=== PATIENT | male | born 1940 | race Caucasian/White ===

== ENCOUNTER 2016-07-07 05:23 | Inpatient (IN) | payer MEDICARE, BC ==
[2016-07-07] VITALS (17 sets, daily range): BP systolic 137–172; BP diastolic 67–95; PULSE 54–82; RESP 10–18; Ht 182.9 cm; Wt 93.0 kg
[~2016-07-07] VITALS: Ht 182.9 cm; Wt 93.0 kg
[2016-07-07] MEDS ORDERED: ATEN50TA PO (05:45)
[2016-07-07] MEDS ORDERED: DOXA4TAB3 PO (05:45)
[2016-07-07] MEDS ORDERED: ATOR20TA38 PO (05:45)
[2016-07-07] MEDS ORDERED: LISI-313 PO (05:45)
[2016-07-07] MEDS ORDERED: ASPI-664 PO (05:45)
[2016-07-07] MEDS ORDERED: OMEP20CA16 PO (05:45)
[2016-07-07] MEDS ORDERED: LACTATED RINGER'S 1,000 ML IV* SCH (06:30)
[2016-07-07] MEDS ORDERED: CEFAZOLIN 2 GM/50 ML (PMX) 50 ML IVPB SCH (06:30)
[2016-07-07] MEDS ORDERED: CEFAZOLIN 1 GM INJ ONE ×2 (06:53→07:06)
[2016-07-07] MEDS ORDERED: SURGIFOAM POWDER 1 GM KIT ONE (06:53)
[2016-07-07] MEDS ORDERED: CA CHLORIDE 10% 10 ML SYRINGE ONE (06:53)
[2016-07-07] MEDS ORDERED: HEPARIN 1000 UNITS/ML 10 ML INJ ONE (06:53)
[2016-07-07] MEDS ORDERED: BUPIVACAINE 0.25%/EPI (SDV) 30 ML INJ ONE (06:53)
[2016-07-07] MEDS ORDERED: THROMBIN 5000 UNIT VIAL ONE (06:54)
--- NOTE | 2016-07-07 06:58 | HPN ---
Date/Time of Note Date/Time of Note DATE: 07/07/16 TIME: 06:57 Interval H&P Admission Note Pt. seen H&P reviewed: No system changes PRIYANKA PALACIOS MD Jul 07, 2016 06:57
[2016-07-07] MEDS ORDERED: CYCLOBENZAPRINE 10 MG TAB PO PRN (07:00)
[2016-07-07] MEDS ORDERED: HYDROmorphONE 0.2 MG/ML PCA IV SCH (07:00)
[2016-07-07] MEDS ORDERED: CEFAZOLIN 1 GM/50 ML (PMX) 50 ML IVPB SCH (07:00)
[2016-07-07] MEDS ORDERED: ZOLPIDEM 5 MG TAB PO PRN (07:00)
[2016-07-07] MEDS ORDERED: HYDROCODONE/APAP (10/325) TAB PO PRN ×2 (07:00)
[2016-07-07] MEDS ORDERED: HYDROmorphONE 1 MG/ML SYG IV PRN (07:00)
[2016-07-07] MEDS ORDERED: AL HYDROX/MG HYDROX/SIMETH 30 ML CUP PO PRN (07:00)
[2016-07-07] MEDS ORDERED: DIPHENHYDRAMINE 25 MG CAP PO PRN (07:00)
[2016-07-07] MEDS ORDERED: ONDANSETRON 4 MG INJ IV PRN ×2 (07:00→10:30)
[2016-07-07] MEDS ORDERED: BISACODYL 10 MG SUPP PR PRN (07:00)
[2016-07-07] MEDS ORDERED: CEPASTAT LOZENGE MT PRN (07:00)
[2016-07-07] MEDS ORDERED: NALOXONE (0.4 MG/ML) INJ IV PRN (07:00)
[2016-07-07] MEDS ORDERED: ACETAMINOPHEN 325 MG TAB PO PRN (07:00)
[2016-07-07] MEDS ORDERED: SUCCINYLCHOLINE CHLORIDE 100 MG/5 ML SYG IV ONE ×3 (07:06→07:58)
[2016-07-07] MEDS ORDERED: FENTAnyl 50 MCG/ML VIAL ONE ×2 (07:06→09:24)
[2016-07-07] MEDS ORDERED: LIDOCAINE 2% (SDV) 5 ML INJ ONE (07:06)
[2016-07-07] MEDS ORDERED: ROCURONIUM 50 MG INJ ONE (07:06)
[2016-07-07] MEDS ORDERED: PROPOFOL 20 ML ONE (07:06)
[2016-07-07] MEDS ORDERED: SODIUM CL BACTERIOSTATIC 30 ML INJ ONE (07:45)
[2016-07-07] MEDS ORDERED: EPHEDrine SULFATE 50 MG/5 ML SYG ONE ×2 (07:58→09:00)
[2016-07-07] MEDS ORDERED: ONDANSETRON 4 MG INJ ONE (07:59)
[2016-07-07] MEDS ORDERED: FAMOTIDINE 20 MG INJ ONE (07:59)
[2016-07-07] MEDS ORDERED: DEXAMETHASONE 4 MG/ML 1 ML INJ ONE (07:59)
[2016-07-07] MEDS ORDERED: ESMOLOL 10 ML ONE (08:33)
[2016-07-07] MEDS: DOCUSATE SODIUM 100 MG CAP PO SCH ×2 (09:00→20:41)
[2016-07-07] MEDS ORDERED: BUPIVACAINE 0.25% (MPF) 10 ML 10 ML VIAL ONE (09:23)
--- NOTE | 2016-07-07 10:08 | RADRPT ---
PROCEDURE: Lumbar spine x-ray intraoperative CLINICAL INDICATION: Lumbar spine surgical procedure TECHNIQUE: Single lateral intraoperative x-ray view of the lumbar spine is available for review. Procedure was performed as a cross-table lateral view on the surgical table. COMPARISON: None available FINDINGS: Posterior approach needle is seen directed at the L2-3 and L4-5 disk space levels. Single image was obtained for localization during the procedure in progress. IMPRESSION: 1. Intraoperative x-ray for localization during lumbar spinal surgical procedure. RPTAT: HMJB .Maxi Arvizu MD, Date Time Electronically viewed and signed by .Maxi Arvizu MD, on 07/07/2016 10:08 .B/
[2016-07-07] MEDS ORDERED: HYDROmorphONE 2 MG/ML SYG ONE (10:12)
[2016-07-07] MEDS ORDERED: DIPHENHYDRAMINE 50 MG INJ IV PRN (10:30)
[2016-07-07] MEDS ORDERED: MEPERIDINE 25 MG INJ IV PRN (10:30)
[2016-07-07] MEDS ORDERED: FENTAnyl 50 MCG/ML VIAL IV PRN (10:30)
[2016-07-07] MEDS ORDERED: PROCHLORPERAZINE 10 MG INJ IV PRN (10:30)
[2016-07-07] MEDS ORDERED: HYDROmorphONE (0.2 MG/ML) 10ML SYG IV PRN (10:30)
--- NOTE | 2016-07-07 12:05 | RADRPT ---
PROCEDURE: Intraoperative lateral view of the lumbosacral spine in surgery. CLINICAL INDICATION: Lumbar decompression. TECHNIQUE: A cross-table lateral view lumbar spine is performed. COMPARISON: Preop L-spine lateral view. FINDINGS: There are ventral osteophytes at the thoracolumbar junction. There are ventral osteophytes off of a ll the lumbar vertebra. There is disk space narrowing and vacuum disk phenomenon at L3-4, L4-5 and L5-S1. Surgical instruments are noted at the level of L3, L4, L5 and S1. Laminectomies have been pe rformed with surgical gauze material noted in the tissues dorsal to the facets of L3, L4 and L5. IMPRESSION: 1. Status post laminectomies at L3, L4 and L5 with ventral spondylosis, disk space narrowing and va cuum disk phenomenon at these same levels. RPTAT:AAJJ Physician Min Date Time Electronically viewed and signed by Physician Min on 07/07/2016 12:05 DULCE MARIA/
--- NOTE | 2016-07-07 13:11 | OPR ---
DATE OF OPERATION: 07/07/2016 PREOPERATIVE DIAGNOSES: 1. L3-L4, L4-L5, L5-S1 stenosis. 2. Large central disk extrusion at L4-L5. 3. Radiculopathy. POSTOPERATIVE DIAGNOSES: 1. L3-L4, L4-L5, L5-S1 stenosis. 2. Large central disk extrusion at L4-L5. 3. Radiculopathy. PROCEDURES: 1. L3-L4, L4-L5, L5-S1 decompression with decompression of L3, L4, L5, and S1 nerve roots bilateral ly. 2. Central diskectomy at L4-L5 from the right. 3. Lateral localizing film x2. 4. Intraoperative neuromonitoring (2.5 hours). 5. Use of operative microscope. 6. Epidural injection via catheter. PRIMARY SURGEON: Estiven Tuttle MD MEAL MILLER: Nelsy Tripathi PA-C NEED FOR FIELD CONTACT TECHNICIAN: During this spinal surgical procedure, my assistant secretary was used to retrac t and protect the spinal nerves and dural sac. My assistant secretary also employed the suction catheters to evacuate blood from the surgical field to improve visualization of the neural structures. The delio tant was medically necessary to facilitate the completion of the surgery in a safe and expeditious jose. State of [place] regulations, as well as hospital bylaws, preclude the use of non-license d health care personnel, such as operating room technicians, to perform these functions. FINDINGS: Neuromonitoring at the start of the case revealed left L4 amplitude down 30%, bilateral L 5 amplitude down 30%, bilateral S1 amplitude down 40%. At the end of the case, nerve signals return ed to normal. The patient had stenosis from L3 to the sacrum with large extrusion at L4-L5. ESTIMATED BLOOD LOSS: 300 mL with blood returned via [employer]. DRAINS: One. SPECIMENS: Spinous process and disks were sent to pathology. COMPLICATIONS OF PROCEDURES: None. ANESTHESIOLOGIST: Dr. Young TYPE OF ANESTHESIA: General. INDICATIONS FOR PROCEDURE: This is a 75-year-old gentleman with lumbosacral radiculopathy and weakn ess in the setting of stenosis and a disk extrusion. He failed nonoperative measures; therefore, I recommended proceeding with the above-mentioned surgery. Preoperatively, we discussed the risks, be nefits, and alternatives. He understood and wished to proceed. DESCRIPTION OF PROCEDURE IN DETAIL: The patient was identified in the preoperative holding area, [facility], [place], taken to the operating room where he was successfully placed under general ane sthesia by Dr. Young. Neuromonitoring leads were placed, sequential compressive devices were applied . Dacosta catheter was introduced. Neuromonitoring was utilized during the procedure for 2-1/2 hours to include SSEP, MEP, and EMG. This was performed by [facility]. Start time was 7:45 a.m., closure time was 10:15 a.m. The patient was placed in downward turned prone position over a Leland frame. All bony prominences were well padded. Spinal needles were placed. Lateral localizing film s obtained to confirm the correct levels. Once this was confirmed, I injected the paraspinal muscul ature with 0.25% Marcaine and epinephrine. The incision was then made from L4 to the sacrum. Incis ion was taken down at the dorsal fascia which was incised with Bovie cautery. I then subperiosteall y dissected the L3, L4, L5, and S1 lamina. Kochers were placed around the spinous processes and rep eat lateral films obtained to confirm the correct levels. Once this was confirmed, microscope was b rought in and a central decompressive laminectomy was performed at L3-L4, L4-L5, and L5-S1. Ligamen jesús flavum was then sharply dissected. I decompressed the central canal and lateral recess and iden tified and decompressed the L3, L4, L5, and S1 nerve roots bilaterally. In addition to this, I perf ormed a right-sided annulotomy at L4-L5 and removed the large central disk extrusion. I also remove d the fragment which was superior to the disk space. Disk diskectomy was performed in order to furt her alleviate the stenosis given the large herniation which was causing anterior stenosis. The deco mpression was performed for stenosis and the diskectomy was performed to further alleviate this sten osis, adding at least 30 minutes to the procedure. Once this was done, I irrigated the wound and th e disk space. Hemostasis was achieved with bipolar cautery, bone wax, and Surgifoam. The wound was irrigated again. A Valsalva maneuver was performed, and there was no leak of CSF. Microscope was taken off the field. I passed an epidural catheter through which I injected 100 mcg of fentanyl mix ed with 2 mL of Marcaine 0.25% preservative-free, and the catheter was pulled. Anesthesiologist fabien w peripheral blood which was spun down using the [employer] device. I took the platelet-poor plasma a nd mixed this with thrombin and injected this over the dura for hemostatic purposes. I then placed a deep subfascial drain and closed the deep fascia with a #1 Stratafix suture. I closed the subcuta neous tissue with 2-0 Vicryl stitch. A 4-0 Monocryl closure was then performed. Dermabond and ster ile dressings were then applied. All nerve signals returned to normal. The patient was then awaken ed from anesthesia and taken to recovery room in stable condition. Lap, sponge, and instrument coun ts were correct x2. There were no apparent complications during the procedure. The patient will be admitted to the orthopedic mejia for routine postoperative care to include pain m anagement, neurovascular checks, antibiotics, and physical therapy. Dictated By: ESTIVEN PULIDO/ALEKSANDER Conf#: [id number] DID#: [id number]
[2016-07-07] MEDS: LISINOPRIL 5 MG TAB PO SCH (13:30)
--- NOTE | 2016-07-07 14:20 | CONS ---
DATE OF ADMISSION: 07/07/2016 DATE OF CONSULTATION: 07/07/2016 POSTOPERATIVE MEDICAL CONSULTATIVE NOTE REQUESTING PHYSICIAN: Estiven Tuttle MD Thank you very much for allowing me to evaluate this 75-year-old male who just underwent low back morales rgery. HISTORICAL EVENTS: As you well know, this patient has had ongoing low back pain and radicular lower extremity pain that did not respond to an epidural at the end of May. Because of continued libby n, he elected to proceed with surgical intervention. Postoperatively, he is comfortable without cou gh, wheezing, shortness of breath, nausea, vomiting, abdominal, or chest pain. PAST MEDICAL HISTORY: Includes: GERD, hyperlipidemia, enlarged prostate, hypertension, and prostat ism. ALLERGIES: NONE. PAST SURGICAL HISTORY: Includes left knee replacement, bilateral shoulder surgery, hand surgery, an d hernia surgery. 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 Single, nonsmoker, rarely drinks. PHYSICAL EXAMINATION: GENERAL: [place] male in no acute distress. VITAL SIGNS: BP 128/70, pulse 72, respirations were 18. He was afebrile. EYES: Extraocular muscles were full. NOSE, MOUTH, AND THROAT: Normal. NECK: Supple. There was no jugular venous distention, thyroid enlargement, or adenopathy. Carotid s 2+. LUNGS: Clear. HEART: Rhythm regular. ABDOMEN: Nontender. Liver and spleen were not palpable. No masses or tenderness were noted. EXTREMITIES: No edema. Calves nontender. IMPRESSION: 1. Stable postop lumbar laminectomy. 2. History of hypertension. Will resume antihypertensive medications and monitor BP throughout. 3. Prostatism. Will be alert to impaired bladder emptying postop and will continue doxazosin. 4. Will evaluate daily for signs and symptoms of thromboembolic disease. 5. History of gastroesophageal reflux disease. Will continue proton pump inhibitor. Dictated By: JOSE ELIZABETH/ALEKSANDER Conf#: [id number] DID#: [id number]
[2016-07-07] MEDS: CEFAZOLIN 1 GM/50 ML (PMX) 50 ML IVPB SCH ×2 (16:03→23:22)
[2016-07-07] MEDS: D5W-0.45 NACL + KCL 20 MEQ 1,000 ML IV SCH ×2 (16:06→16:51)
[2016-07-07] MEDS: DOXAZOSIN 4 MG TAB PO SCH (20:41)
[2016-07-07] MEDS: ATORVASTATIN 20 MG TAB PO SCH (20:41)
[2016-07-07] MEDS: ATENOLOL 50 MG TAB PO SCH (20:41)
[2016-07-08 00:04] VITALS: BP 135/73; PULSE 63; RESP 18
[2016-07-08] MEDS: D5W-0.45 NACL + KCL 20 MEQ 1,000 ML IV SCH ×3 (02:51→22:51)
[2016-07-08 05:30] VITALS: BP 147/75; PULSE 56; RESP 18
[2016-07-08 05:33] LABS: POTASSIUM 4.6 mmol/L (3.5-5.1)
[2016-07-08 05:36] LABS: CALCIUM 9.4 mg/dl (8.4-10.2); CREATININE 0.8 mg/dl (0.61-1.24); MAGNESIUM 2.1 mg/dl (1.7-2.5)
[2016-07-08 05:53] LABS: BASOPHILS % 0.1 % (0.0-2.0); EOSINOPHILS % 0.4 % (0.0-7.0); HEMATOCRIT 37.4 % (42.0-52.0); HEMOGLOBIN 12.9 g/dl (14.0-18.0); LYMPHOCYTES # 0.9 10^3/ul (0.8-2.9); LYMPHOCYTES % 7.9 % (15.0-51.0); MEAN CORPUSCULAR HEMOGLOBIN 30.3 pg (29.0-33.0); MEAN CORPUSCULAR HGB CONC 34.5 g/dl (32.0-37.0); MEAN CORPUSCULAR VOLUME 87.7 fl (82.0-101.0); MEAN PLATELET VOLUME 10.8 fl (7.4-10.4); MONOCYTE # 1.2 10^3/ul (0.3-0.9); MONOCYTES % 10.9 % (0.0-11.0); NEUTROPHILS % 80.7 % (39.0-77.0); PLATELET COUNT 119 10^3/UL (140-440); RED BLOOD COUNT 4.26 10^6/ul (4.70-6.10); RED CELL DISTRIBUTION WIDTH 14.2 % (11.5-14.5); UNCORRECTED WBC 11.1 10^3/ul (4.8-10.8); WHITE BLOOD COUNT 11.1 10^3/ul (4.8-10.8)
[2016-07-08 05:56] LABS: CONDITION 1
[2016-07-08] MEDS ORDERED: PANTOPRAZOLE 40 MG INJ IV SCH (06:00)
[2016-07-08] MEDS: CEFAZOLIN 1 GM/50 ML (PMX) 50 ML IVPB SCH (06:33)
[2016-07-08 08:16] VITALS: BP 144/77; RESP 20
--- NOTE | 2016-07-08 08:19 | CONS ---
Date/Time of Note Date/Time of Note DATE: 07/08/16 TIME: 08:16 Assessment/Plan Assessment/Plan Additional Assessment/Plan 1. Stable postop lumbar laminectomy. 2. HBP, controlled 3. Prostatism, rabago to be dc and will observe for urinary retention 4. History of gastroesophageal reflux disease, asx Consultation Date/Type/Reason Admit Date/Time Jul 07, 2016 at 05:23 Initial Consult Date Detailed Summary Respiratory: No cough, No shortness of breath Cardiovascular: chest pain Gastrointestinal: No no complaints Genitourinary: other (rabago in place) Musculoskeletal: back pain (mild) Exam/Review of Systems Vital Signs Vitals Vital Signs Date Time Temp Pulse Resp B/P Pulse Ox O2 Delivery O2 Flow Rate FiO2 07/08/16 05:30 97.8 56 18 147/75 97 Room Air 07/07/16 10:44 6.0 Intake and Output 07/07/16 07/07/16 07/08/16 15:00 23:00 07:00 Intake Total 2050 ml 550 ml Output Total 620 ml 175 ml 100 ml Balance 1430 ml 375 ml -100 ml Exam Neck: No jvd Respiratory: clear to auscultation Cardiovascular: regular rate and rhythm Gastrointestinal: soft Extremities: No edema (and no calf tend) Results Result Diagram: 07/08/1644207/08/163 Results 24 hrs Laboratory Tests Test 07/08/16 04:43 Anion Gap 13 Basophils # 0.0 Basophils % 0.1 Blood Morphology Comment Blood Urea Nitrogen 16 Calcium Level 9.4 Carbon Dioxide Level 29 Chloride Level 106 Creatinine 0.80 Eosinophils # 0.0 Eosinophils % 0.4 Glucose Level 113 Hematocrit 37.4 L Hemoglobin 12.9 L Lymphocytes # 0.9 Lymphocytes % 7.9 L Magnesium Level 2.1 Mean Corpuscular Hemoglobin 30.3 Mean Corpuscular Hemoglobin Concent 34.5 Mean Corpuscular Volume 87.7 Mean Platelet Volume 10.8 H Monocytes # 1.2 H Monocytes % 10.9 Neutrophils # 9.0 H Neutrophils % 80.7 H Nucleated Red Blood Cells # 0.0 Nucleated Red Blood Cells % 0.0 Platelet Count 119 L Potassium Level 4.6 Red Blood Count 4.26 L Red Cell Distribution Width 14.2 Sodium Level 143 White Blood Count 11.1 H Medications Medications Current Medications Lactated Ringer's 1,000 ml @ 0 mls/hr Q0M IV* ; Start 07/07/16 at 06:30 Potassium Chloride/Dextrose/ Sod Cl (D5-1/2ns + KCl 20 Meq) 1,000 ml @ 100 mls/ hr Q10H IV Last administered on 07/08/16 05:43; Admin Dose 100 MLS/HR; Start at 06:51 Acetaminophen/ Hydrocodone Bitart ([place] (10/325)) 1 tab Q4H PRN PO PAIN LEVEL 1-5; Start 07/07/16 at 07:00 Acetaminophen/ Hydrocodone Bitart ([place] (10/325)) 2 tab Q4H PRN PO PAIN LEVEL 6-10; Start 07/07/16 at 07:00 Hydromorphone HCl (Dilaudid) 0.2 mg Q1H PRN IV BREAKTHROUGH PAIN; Start at 07:00 Zolpidem Tartrate (Ambien) 5 mg HS PRN PO INSOMNIA; Start 07/07/16 at 07:00 Ondansetron HCl (Zofran Inj) 4 mg Q6H PRN IV NAUSEA AND/OR VOMITING; Start 07/07 at 07:00 Bisacodyl (Dulcolax Supp) 10 mg DAILY PRN [place] CONSTIPATION; Start 07/07/16 at 07: 00 Docusate Sodium (Colace) 100 mg BID PO Last administered on 07/07/16 20:41; Admin Dose 100 MG; Start 07/07/16 at 09:00 Pantoprazole (Protonix Iv) 40 mg DAILY@06 IV Last administered on 07/08/16 05: 43; Admin Dose 40 MG; Start 07/08/16 at 06:00 Al Hydrox/Mg Hydrox/Simethicone (Mag-Al Plus) 15 ml Q6H PRN PO CONSTIPATION/ DYSPEPSIA; Start 07/07/16 at 07:00 Acetaminophen (Tylenol Tab) 650 mg Q4H PRN PO SHRESTHA OR TEMP GREATER THAN 101.3F; Start 07/07/16 at 07:00 Cyclobenzaprine HCl (Flexeril) 10 mg TID PRN PO MUSCLE SPASMS; Start 07/07/16 at 07:00 Phenol (Cepastat Lozenge) 1 lozenge PRN PRN MT SORE THROAT; Start 07/07/16 at 07 :00 Diphenhydramine HCl (Benadryl) 25 mg Q6H PRN PO ITCHING; Start 07/07/16 at 07:00 Naloxone HCl (Narcan) 0.2 mg Q2M PRN IV RR 8 BREATHS/MIN OR LESS; Start at 07:00 Hydromorphone HCl (Dilaudid HOOP COILER) HOOP COILER to be started in PACU Q4PCA IV Last administered on 07/07/16 11:06; Admin Dose 6 MG; Start 07/07/16 at 07:00 Miscellaneous Information 1. Hold HOOP COILER at 1,000... HOOP COILER IV ; Start 07/07/16 at 07: 00 Atenolol (Tenormin) 50 mg QHS PO Last administered on 07/07/16 20:41; Admin Dose 50 MG; Start 07/07/16 at 21:00 Atorvastatin Calcium (Lipitor) 20 mg QHS PO Last administered on 07/07/16 20:41 ; Admin Dose 20 MG; Start 07/07/16 at 21:00 Doxazosin Mesylate (Cardura) 4 mg HS PO Last administered on 07/07/16 20:41; Admin Dose 4 MG; Start 07/07/16 at 21:00 Lisinopril (Zestril) 5 mg DAILY PO ; Start 07/07/16 at 13:30 JOSE ROMO MD Jul 08, 2016 08:19
[2016-07-08] MEDS: DOCUSATE SODIUM 100 MG CAP PO SCH ×2 (08:48→21:21)
[2016-07-08] MEDS: LISINOPRIL 5 MG TAB PO SCH (08:49)
--- NOTE | 2016-07-08 12:29 | PN ---
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
--- NOTE | 2016-07-08 18:08 | DS ---
DATE OF ADMISSION: 07/07/2016 DATE OF DISCHARGE: 07/08/2016 ADMITTING DIAGNOSIS: Spinal stenosis. DISCHARGE DIAGNOSIS: Spinal stenosis. PROCEDURE: Patient taken to the operating room on 07/07/2016 and underwent lumbar decompression. HOSPITAL COURSE: The patient was admitted to the orthopedic mejia after undergoing above procedure. His postoperative course was uncomplicated. By postop day 1, he was deemed stable for discharge wi th followup arranged with the undersigned. Dictated By: PRIYANKA PULIDO/ALEKSANDER Conf#: [id number] DID#: [id number]
[2016-07-08 19:50] VITALS: BP 120/78; RESP 20
[2016-07-08] MEDS: ATORVASTATIN 20 MG TAB PO SCH (21:20)
[2016-07-08] MEDS: DOXAZOSIN 4 MG TAB PO SCH (21:21)
[2016-07-08] MEDS: ATENOLOL 50 MG TAB PO SCH (21:21)
[2016-07-09 05:38] LABS: BASOPHILS % 0.1 % (0.0-2.0); EOSINOPHILS % 0.3 % (0.0-7.0); HEMATOCRIT 38.9 % (42.0-52.0); HEMOGLOBIN 13.4 g/dl (14.0-18.0); LYMPHOCYTES # 0.9 10^3/ul (0.8-2.9); LYMPHOCYTES % 8.1 % (15.0-51.0); MEAN CORPUSCULAR HEMOGLOBIN 30.2 pg (29.0-33.0); MEAN CORPUSCULAR HGB CONC 34.3 g/dl (32.0-37.0); MEAN CORPUSCULAR VOLUME 88.1 fl (82.0-101.0); MONOCYTE # 1.3 10^3/ul (0.3-0.9); MONOCYTES % 11.8 % (0.0-11.0); NEUTROPHIL # 8.5 10^3/ul (1.6-7.5); NEUTROPHILS % 79.7 % (39.0-77.0); PLATELET COUNT 133 10^3/UL (140-440); RED BLOOD COUNT 4.42 10^6/ul (4.70-6.10); RED CELL DISTRIBUTION WIDTH 14.4 % (11.5-14.5); UNCORRECTED WBC 10.7 10^3/ul (4.8-10.8); WHITE BLOOD COUNT 10.7 10^3/ul (4.8-10.8)
[2016-07-09] MEDS: PANTOPRAZOLE (EC) 40 MG TAB PO SCH (05:45)
[2016-07-09 05:52] LABS: POTASSIUM 4.3 mmol/L (3.5-5.1)
[2016-07-09 05:54] LABS: CREATININE 0.83 mg/dl (0.61-1.24)
[2016-07-09 05:55] LABS: CALCIUM 9.4 mg/dl (8.4-10.2)
[2016-07-09 06:21] LABS: CONDITION 1
--- NOTE | 2016-07-09 07:50 | CONS ---
Date/Time of Note Date/Time of Note DATE: 07/09/16 TIME: 07:48 Assessment/Plan Assessment/Plan Additional Assessment/Plan 1. Post op lumbar back surg, doing well 2. Urinary retention, symptomatic, meds changed, u/a and cult ordered, urology too see 3. BP well controlled Consultation Date/Type/Reason Admit Date/Time Jul 07, 2016 at 05:23 Detailed Summary Respiratory: No cough, No shortness of breath Cardiovascular: No chest pain, No orthopenea Gastrointestinal: no complaints Genitourinary: other (diff voiding and dysura, rabago now in place, residuals> 400 cc) Musculoskeletal: back pain (mild) Exam/Review of Systems Vital Signs Vitals Vital Signs Date Time Temp Pulse Resp B/P Pulse Ox O2 Delivery O2 Flow Rate FiO2 07/08/16 19:50 98.3 85 20 120/78 98 07/08/16 05:30 Room Air 07/07/16 10:44 6.0 Intake and Output 07/08/16 07/08/16 07/09/16 15:00 23:00 07:00 Intake Total 450 ml 1860 ml 800 ml Output Total 2525 ml 3050 ml Balance 450 ml -665 ml -2250 ml Exam Neck: No jvd Respiratory: clear to auscultation Cardiovascular: regular rate and rhythm Gastrointestinal: soft Extremities: No edema (and no calf tend bilat) Results Result Diagram: 07/09/16 0448 07/09/16 0448 Results 24 hrs Laboratory Tests Test 07/09/16 04:48 Anion Gap 16 Basophils # 0.0 Basophils % 0.1 Blood Morphology Comment Blood Urea Nitrogen 18 Calcium Level 9.4 Carbon Dioxide Level 26 Chloride Level 104 Creatinine 0.83 Eosinophils # 0.0 Eosinophils % 0.3 Glucose Level 102 Hematocrit 38.9 L Hemoglobin 13.4 L Lymphocytes # 0.9 Lymphocytes % 8.1 L Magnesium Level 2.0 Mean Corpuscular Hemoglobin 30.2 Mean Corpuscular Hemoglobin Concent 34.3 Mean Corpuscular Volume 88.1 Mean Platelet Volume 11.0 H Monocytes # 1.3 H Monocytes % 11.8 H Neutrophils # 8.5 H Neutrophils % 79.7 H Nucleated Red Blood Cells # 0.0 Nucleated Red Blood Cells % 0.0 Platelet Count 133 L Potassium Level 4.3 Red Blood Count 4.42 L Red Cell Distribution Width 14.4 Sodium Level 142 White Blood Count 10.7 Medications Medications Current Medications Lactated Ringer's 1,000 ml @ 0 mls/hr Q0M IV* ; Start 07/07/16 at 06:30 Potassium Chloride/Dextrose/ Sod Cl (D5-1/2ns + KCl 20 Meq) 1,000 ml @ 100 mls/ hr Q10H IV Last administered on 07/08/16 05:43; Admin Dose 100 MLS/HR; Start at 06:51 Acetaminophen/ Hydrocodone Bitart ([place] (10/325)) 1 tab Q4H PRN PO PAIN LEVEL 1-5; Start 07/07/16 at 07:00 Acetaminophen/ Hydrocodone Bitart ([place] (10/325)) 2 tab Q4H PRN PO PAIN LEVEL 6-10; Start 07/07/16 at 07:00 Hydromorphone HCl (Dilaudid) 0.2 mg Q1H PRN IV BREAKTHROUGH PAIN; Start at 07:00 Zolpidem Tartrate (Ambien) 5 mg HS PRN PO INSOMNIA; Start 07/07/16 at 07:00 Ondansetron HCl (Zofran Inj) 4 mg Q6H PRN IV NAUSEA AND/OR VOMITING; Start 07/07 at 07:00 Bisacodyl (Dulcolax Supp) 10 mg DAILY PRN [place] CONSTIPATION; Start 07/07/16 at 07: 00 Docusate Sodium (Colace) 100 mg BID PO Last administered on 07/08/16 21:21; Admin Dose 100 MG; Start 07/07/16 at 09:00 Al Hydrox/Mg Hydrox/Simethicone (Mag-Al Plus) 15 ml Q6H PRN PO CONSTIPATION/ DYSPEPSIA; Start 07/07/16 at 07:00 Acetaminophen (Tylenol Tab) 650 mg Q4H PRN PO SHRESTHA OR TEMP GREATER THAN 101.3F; Start 07/07/16 at 07:00 Cyclobenzaprine HCl (Flexeril) 10 mg TID PRN PO MUSCLE SPASMS; Start 07/07/16 at 07:00 Phenol (Cepastat Lozenge) 1 lozenge PRN PRN MT SORE THROAT; Start 07/07/16 at 07 :00 Diphenhydramine HCl (Benadryl) 25 mg Q6H PRN PO ITCHING; Start 07/07/16 at 07:00 Naloxone HCl (Narcan) 0.2 mg Q2M PRN IV RR 8 BREATHS/MIN OR LESS; Start at 07:00 Hydromorphone HCl (Dilaudid BILINGUAL PATIENT SUPPORT CASEWORKER) BILINGUAL PATIENT SUPPORT CASEWORKER to be started in PACU Q4PCA IV Last administered on 07/07/16 11:06; Admin Dose 6 MG; Start 07/07/16 at 07:00 Miscellaneous Information 1. Hold BILINGUAL PATIENT SUPPORT CASEWORKER at 1,000... BILINGUAL PATIENT SUPPORT CASEWORKER IV ; Start 07/07/16 at 07: 00 Atenolol (Tenormin) 50 mg QHS PO Last administered on 07/08/16 21:21; Admin Dose 50 MG; Start 07/07/16 at 21:00 Atorvastatin Calcium (Lipitor) 20 mg QHS PO Last administered on 07/08/16 21:20 ; Admin Dose 20 MG; Start 07/07/16 at 21:00 Doxazosin Mesylate (Cardura) 4 mg HS PO Last administered on 07/08/16 21:21; Admin Dose 4 MG; Start 07/07/16 at 21:00 Lisinopril (Zestril) 5 mg DAILY PO Last administered on 07/08/16 08:49; Admin Dose 5 MG; Start 07/07/16 at 13:30 Pantoprazole (Protonix Tab) 40 mg DAILY@06 PO Last administered on 07/09/16 05: 45; Admin Dose 40 MG; Start 07/09/16 at 06:00 JOSE ROMO MD Jul 09, 2016 07:49
[2016-07-09] MEDS ORDERED: TAMSULOSIN (SR) 0.4 MG CAP PO ONE (08:00)
[2016-07-09 08:14] VITALS: BP 110/61; RESP 18
[2016-07-09] MEDS: D5W-0.45 NACL + KCL 20 MEQ 1,000 ML IV SCH (08:51)
[2016-07-09] MEDS: LISINOPRIL 5 MG TAB PO SCH (09:00)
[2016-07-09] MEDS: DOCUSATE SODIUM 100 MG CAP PO SCH ×2 (09:40→20:40)
[2016-07-09] MEDS: DOXAZOSIN 2 MG TAB PO SCH ×2 (09:41→20:40)
[2016-07-09 11:17] LABS: ADD UMIC YES; URINE BILIRUBIN (Dip) NEGATIVE (NEGATIVE); URINE BLOOD (Dip) 3+ (NEGATIVE); URINE COLOR YELLOW (YELLOW); URINE GLUCOSE (Dip) NEGATIVE (NEGATIVE); URINE KETONES (Dip) NEGATIVE (NEGATIVE); URINE LEUKOCYTE ESTERASE (Dip) 1+ (NEGATIVE); URINE NITRITE (Dip) NEGATIVE (NEGATIVE); URINE TOTAL PROTEIN (Dip) 2+ (NEGATIVE); URINE UROBILINOGEN (Dip) 1.0 E.U./dL (0.1-1.0)
[2016-07-09 11:57] LABS: BACTERIA,URINE FEW; URINE RBCS 25-50 /HPF (0)
--- NOTE | 2016-07-09 14:32 | CONS ---
DATE OF ADMISSION: 07/07/2016 DATE OF CONSULTATION: 07/09/2016 REQUESTING PHYSICIAN: Dr. Jose Romo Dear Jose, Thank you for asking me to see this patient in urological consultation. HISTORY OF PRESENT ILLNESS: This is a 75-year-old male who underwent back surgery on 07/07/2016 and the time of the surgery had a Dacosta catheter inserted and when the catheter was removed later on, ismael guerrier was not able to urinate. They inserted the catheter again and when the 2nd time it was removed, ismael guerrier was able to urinate a couple of times and then he had high postvoid residual and they had to do a straight catheterization on him. Finally, they left the catheter in and a urological consultation w as requested. The patient is known to have a history of enlarged prostate, usually before he had hi s surgery. He has been on doxazosin 4 mg daily for his prostate. He usually does have nocturia abo ut 1 to 2 times a night. During the day he voids every 2 hours. He described his urinary stream as slow, and he feels he does not empty his bladder well and when he holds his urine, he will have dys uria. He denies, however, postvoid dribbling. On occasion, he does have urgency but there is no ur gency incontinence, and there is no history of gross hematuria. Over 10 years ago he underwent a pr ostate biopsy and that was benign. He also was put on finasteride. He took it for about 1 year and then he stopped. PAST SURGICAL HISTORY: Includes a history of left knee replacement 5 years ago, right inguinal liliya ia repair and bilateral shoulder surgery, and right hand surgery for Dupuytren contracture. PAST MEDICAL HISTORY: Includes a history of hypertension. He has been on lisinopril and Atenolol a nd also has been taking atorvastatin and aspirin prior to his hospitalization. ALLERGIES: DENIES. SOCIAL HISTORY: Does not smoke, and does drink rarely. There is no history of drug abuse. FAMILY HISTORY: Noncontributory. PHYSICAL EXAMINATION: GENERAL: Reveals an elderly male, 75 years old. He weighs 93 kg and he is 72 inches tall. He is v meliton cooperative and knowledgeable about his medical conditions. HEAD AND NECK: Unremarkable. ABDOMEN: Soft. There is no abdominal mass palpable. GENITALIA: External genitalia are normal. RECTAL: Examination revealed large prostate and soft prostate. LABORATORY DATA: CBC today shows a white count of 10.7, hemoglobin 13.4, hematocrit 38.9. BUN is 1 8, creatinine 0.83, sodium 142, potassium 4.3, chloride 104, CO2 26. MEDICATIONS: Included: 1. He was on doxazosin, but that was stopped and replaced by Tamsulosin this morning. 2. Protonix. 3. Atenolol. 4. Atorvastatin. 5. Lisinopril. 6. Colace. 7. Rover for the pain. 8. Ambien to sleep. 9. Zofran p.r.n. 10. Dulcolax p.r.n. 11. Flexeril p.r.n. 12. Benadryl p.r.n. 13. Narcan p.r.n. 14. Dilaudid p.r.n. IMPRESSION: Postop urinary retention. Patient did have similar problem when he had his knee replac ement in the past and also when he had the inguinal hernia surgery, but after a day or two it subsid ed. The patient does have an enlarged prostate and has been on doxazosin 4 mg daily. PLAN: Continue the Flomax that was started on him today. Also, I would go ahead and keep him on do xazosin, but I will divide it into 2 doses, 2 mg in the morning and 2 mg in the evening. I will h ave the Dacosta catheter removed tomorrow morning and the patient would notify the nurse after he urin ates. They will check his postvoid residual, and if the postvoid residual is over 300, then I would do straight catheterization on him. If he does not void and the bladder volume shows over 500, he also will undergo straight catheterization. He eventually should be able to urinate on his own. As he moves around and has less pain, hopefully that will help him urinate better. Dictated By: KATELYN PULIDO/ALEKSANDER Conf#: [id number] DID#: [id number] CC: JOSE ROMO MD;*End*
[2016-07-09 19:00] VITALS: BP 140/77; RESP 19
[2016-07-09] MEDS: ATENOLOL 50 MG TAB PO SCH (20:40)
[2016-07-09] MEDS: ATORVASTATIN 20 MG TAB PO SCH (20:40)
[2016-07-09] MEDS: TAMSULOSIN (SR) 0.4 MG CAP PO SCH (20:40)
[2016-07-10] MEDS: PANTOPRAZOLE (EC) 40 MG TAB PO SCH (05:48)
[2016-07-10 06:18] LABS: ADD SCAN DIFF NO
[2016-07-10 06:20] LABS: BASOPHILS % 0.2 % (0.0-2.0); EOSINOPHILS # 0.2 10^3/ul (0.0-0.5); EOSINOPHILS % 1.9 % (0.0-7.0); HEMATOCRIT 35.7 % (42.0-52.0); LYMPHOCYTES # 0.9 10^3/ul (0.8-2.9); LYMPHOCYTES % 10.5 % (15.0-51.0); MEAN CORPUSCULAR HEMOGLOBIN 29.5 pg (29.0-33.0); MEAN CORPUSCULAR HGB CONC 33.6 g/dl (32.0-37.0); MEAN CORPUSCULAR VOLUME 87.7 fl (82.0-101.0); MEAN PLATELET VOLUME 12.8 fl (7.4-10.4); MONOCYTE # 1.3 10^3/ul (0.3-0.9); MONOCYTES % 14.8 % (0.0-11.0); NEUTROPHIL # 6.3 10^3/ul (1.6-7.5); NEUTROPHILS % 72.3 % (39.0-77.0); PLATELET COUNT 123 10^3/UL (140-415); RED BLOOD COUNT 4.07 10^6/ul (4.70-6.10); RED CELL DISTRIBUTION WIDTH 13.6 % (11.5-14.5); WHITE BLOOD COUNT 8.7 10^3/ul (4.8-10.8)
[2016-07-10 07:00] LABS: POTASSIUM 4.1 mmol/L (3.5-5.1)
[2016-07-10 07:02] LABS: CREATININE 0.87 mg/dl (0.61-1.24)
[2016-07-10 07:03] LABS: CALCIUM 9.2 mg/dl (8.4-10.2); MAGNESIUM 2.2 mg/dl (1.7-2.5)
[2016-07-10 08:00] VITALS: BP 128/69; PULSE 59; RESP 18
--- NOTE | 2016-07-10 08:08 | PN ---
Date/Time of Note Date/Time of Note DATE: 07/10/16 TIME: 08:03 Assessment/Plan Lines/Catheters IV Catheter Type (from Nrs): Peripheral IV Dacosta in Place (from Nrs): Yes Assessment/Plan Assessment/Plan patient is doing well, recovering from surgery cleared for D/C home from ortho perspective D/C home when cleared by PMD (Jacinto) and urology (Debbie) Subjective 24 Hr Interval Summary patient reports improving low back discomfort legs feeling better waiting to see if cleared for D/C by urology Exam/Review of Systems Vital Signs Vitals Vital Signs Date Time Temp Pulse Resp B/P Pulse Ox O2 Delivery O2 Flow Rate FiO2 07/09/16 19:00 98.3 71 19 140/77 93 07/08/16 05:30 Room Air 07/07/16 10:44 6.0 Intake and Output 07/09/16 07/09/16 07/10/16 15:00 23:00 07:00 Intake Total 1000 ml 1400 ml Output Total 1000 ml 2700 ml Balance 0 ml -1300 ml Exam Free Text/Dictation incision - C/D/I, no dressing in place NVID catheter has been D/C this AM pending check for post-void residual Results Result Diagram: 07/10/16 0450 07/10/16 0450 LILIANA MIN PA-C Jul 10, 2016 08:08
[2016-07-10] MEDS: DOXAZOSIN 2 MG TAB PO SCH (08:53)
[2016-07-10] MEDS: DOCUSATE SODIUM 100 MG CAP PO SCH (08:53)
[2016-07-10] MEDS: LISINOPRIL 5 MG TAB PO SCH (08:56)
--- NOTE | 2016-07-10 10:54 | CONS ---
Date/Time of Note Date/Time of Note DATE: 07/10/16 TIME: 10:49 Assessment/Plan Assessment/Plan Chief Complaint/Hosp Course 1. he is 3 days post op a lumbar spine surgery . 2. he is voiding well , he expected to be discharged today . 3. I gave him a prescription for Flomax when he goes home . He will follow up with his urologist as outpatient . Problems: Consultation Date/Type/Reason Admit Date/Time Jul 07, 2016 at 05:23 Initial Consult Date 24 HR Interval Summary Free Text/Dictation he is 3 days post op a lumbar spine surgery , he feels well . He says that he is voiding well . Constitutional: improved, no complaints Exam/Review of Systems Vital Signs Vitals Vital Signs Date Time Temp Pulse Resp B/P Pulse Ox O2 Delivery O2 Flow Rate FiO2 07/10/16 08:00 97.7 59 18 128/69 98 Room Air 07/07/16 10:44 6.0 Intake and Output 07/09/16 07/09/16 07/10/16 15:00 23:00 07:00 Intake Total 1000 ml 1400 ml Output Total 1000 ml 2700 ml Balance 0 ml -1300 ml Exam Constitutional: alert, oriented, well developed Psych: nl mood/affect, no complaints Respiratory: clear to auscultation, normal air movement Cardiovascular: regular rate and rhythm Gastrointestinal: soft Musculoskeletal: nl extremities to inspection Results Result Diagram: 07/10/16 0450 07/10/16 0450 Results 24 hrs Laboratory Tests Test 07/10/16 04:50 Anion Gap 12 Basophils # 0.0 Basophils % 0.2 Blood Urea Nitrogen 17 Calcium Level 9.2 Carbon Dioxide Level 28 Chloride Level 105 Creatinine 0.87 Eosinophils # 0.2 Eosinophils % 1.9 Glucose Level 95 Hematocrit 35.7 L Hemoglobin 12.0 L Lymphocytes # 0.9 Lymphocytes % 10.5 L Magnesium Level 2.2 Mean Corpuscular Hemoglobin 29.5 Mean Corpuscular Hemoglobin Concent 33.6 Mean Corpuscular Volume 87.7 Mean Platelet Volume 12.8 H Monocytes # 1.3 H Monocytes % 14.8 H Neutrophils # 6.3 Neutrophils % 72.3 Nucleated Red Blood Cells # 0.0 Nucleated Red Blood Cells % 0.0 Platelet Count 123 L Potassium Level 4.1 Red Blood Count 4.07 L Red Cell Distribution Width 13.6 Sodium Level 141 White Blood Count 8.7 Medications Medications Current Medications Acetaminophen/ Hydrocodone Bitart ([place] ()) 1 tab Q4H PRN PO PAIN LEVEL 1-5; Start 07/07/16 at 07:00 Acetaminophen/ Hydrocodone Bitart ([place] (325)) 2 tab Q4H PRN PO PAIN LEVEL 6-10; Start 07/07/16 at 07:00 Hydromorphone HCl (Dilaudid) 0.2 mg Q1H PRN IV BREAKTHROUGH PAIN; Start at 07:00 Zolpidem Tartrate (Ambien) 5 mg HS PRN PO INSOMNIA; Start 07/07/16 at 07:00 Ondansetron HCl (Zofran Inj) 4 mg Q6H PRN IV NAUSEA AND/OR VOMITING; Start 07/07 at 07:00 Bisacodyl (Dulcolax Supp) 10 mg DAILY PRN [place] CONSTIPATION Last administered on 07/10/16 08:53; Admin Dose 10 MG; Start 07/07/16 at 07:00 Docusate Sodium (Colace) 100 mg BID PO Last administered on 07/10/16 08:53; Admin Dose 100 MG; Start 07/07/16 at 09:00 Al Hydrox/Mg Hydrox/Simethicone (Mag-Al Plus) 15 ml Q6H PRN PO CONSTIPATION/ DYSPEPSIA Last administered on 07/09/16 18:26; Admin Dose 15 ML; Start 07/07/16 at 07:00 Acetaminophen (Tylenol Tab) 650 mg Q4H PRN PO SHRESTHA OR TEMP GREATER THAN 101.3F; Start 07/07/16 at 07:00 Cyclobenzaprine HCl (Flexeril) 10 mg TID PRN PO MUSCLE SPASMS; Start 07/07/16 at 07:00 Phenol (Cepastat Lozenge) 1 lozenge PRN PRN [place] SORE THROAT; Start 07/07/16 at 07 :00 Diphenhydramine HCl (Benadryl) 25 mg Q6H PRN PO ITCHING; Start 07/07/16 at 07:00 Naloxone HCl (Narcan) 0.2 mg Q2M PRN IV RR 8 BREATHS/MIN OR LESS; Start at 07:00 Hydromorphone HCl (Dilaudid ORCHID TRANSPLANTER) ORCHID TRANSPLANTER to be started in PACU Q4PCA IV Last administered on 07/07/16 11:06; Admin Dose 6 MG; Start 07/07/16 at 07:00 Miscellaneous Information 1. Hold ORCHID TRANSPLANTER at 1,000... ORCHID TRANSPLANTER IV ; Start 07/07/16 at 07: 00 Atenolol (Tenormin) 50 mg QHS PO Last administered on 07/09/16 20:40; Admin Dose 50 MG; Start 07/07/16 at 21:00 Atorvastatin Calcium (Lipitor) 20 mg QHS PO Last administered on 07/09/16 20:40 ; Admin Dose 20 MG; Start 07/07/16 at 21:00 Lisinopril (Zestril) 5 mg DAILY PO Last administered on 07/10/16 08:56; Admin Dose 5 MG; Start 07/07/16 at 13:30 Pantoprazole (Protonix Tab) 40 mg DAILY@06 PO Last administered on 07/10/16 05 :48; Admin Dose 40 MG; Start 07/09/16 at 06:00 Tamsulosin HCl (Flomax) 0.4 mg HS PO Last administered on 07/09/16 20:40; Admin Dose 0.4 MG; Start 07/09/16 at 21:00 Doxazosin Mesylate (Cardura) 2 mg BID PO Last administered on 07/10/16 08:53; Admin Dose 2 MG; Start 07/09/16 at 10:00 CONCETTA SANDOVAL MD Jul 10, 2016 10:54
[2016-07-10] MEDS: TAMSULOSIN (SR) 0.4 MG CAP PO SCH (17:18)
--- NOTE | 2016-07-11 07:04 | PN ---
DATE: 07/10/2016 SUBJECTIVE: The patient had urinary retention postoperatively, and he has a large prostate. He was placed on tamsulosin 0.4 mg and also Doxazosin 2 mg twice a day. This morning the Dacosta catheter wa s removed and the patient has been voiding and appears to be comfortable. He had a urine output of 2000 mL. Therefore he is responding to medications. LABORATORY: His CBC shows a white count of 8.7, hemoglobin 12.0, hematocrit 35.7. BUN is 17, creat inine 0.87. Electrolytes are normal. IMPRESSION: Benign prostatic hypertrophy. The patient is on Flomax and 2 mg of doxazosin twice a d ay. He could go home and continue these. He has his own urologist and he could follow up with him. Dictated By: KATELYN PULIDO/ALEKSANDER Conf#: [id number] DID#: [id number]
== END 2016-07-10 17:25 | disposition home or self-care (01) | DRG 519 ==
LOC: REC 05:23 → MS1 12:05
PROVIDERS: ADMIT Specialist; ATTEND Specialist
PROC: 01NB0ZZ Release Lumbar Nerve, Open Approach (ICD-10-PCS; 2016-07-07)
PROC: 0SB20ZZ Excision of Lumbar Vertebral Disc, Open Approach (ICD-10-PCS; principal; 2016-07-07 07:00)
DX: M48.06 Spinal stenosis, lumbar region (principal); I38 Endocarditis, valve unspecified; M51.16 Intervertebral disc disorders with radiculopathy, lumbar region; M48.07 Spinal stenosis, lumbosacral region; R33.9 Retention of urine, unspecified; K21.9 Gastro-esophageal reflux disease without esophagitis; I10 Essential (primary) hypertension; N28.1 Cyst of kidney, acquired; N40.1 Benign prostatic hyperplasia with lower urinary tract symptoms
CPT/HCPCS: 72020; 80048; 81001; 81003; 83735; 85025; 86850; 86900; 86901; 86920; 86999; 87086; 88304; 88311; 97116; 97163; 97530; A4310; C9113; J0330; J0690; J1100; J1170; J1644; J2405; J3010; J3480